=== PATIENT | female | born 1950 | race Caucasian/White ===

== ENCOUNTER 2019-02-26 18:28 | Emergency (ER) | payer MEDICARE, OTHER, SELFPAY ==
[2019-02-26 18:30] VITALS: BP 166/68; PULSE 75; RESP 18; TEMP 36.4; O2SAT 100; BMI 30.4
[2019-02-26 18:35] VITALS: BP 156/66; PULSE 74; RESP 18; O2SAT 99
--- NOTE | 2019-02-26 18:48 | RAD_ITS ---
STUDY: X-RAY - PELVIS AND RIGHT HIP REASON FOR EXAM: Female, 68 years old. Trauma, pain TECHNIQUE: 3 views of the pelvis and hip. COMPARISON: None. FINDINGS: There is a comminuted fracture of the right hip involving the intertrochanteric region and femoral neck with coxa vera deformity.. There is mild superior lateral subluxation of the femoral head. There is soft tissue hematoma. There is generalized osteopenia. RAD/HIP, UNI W/ Pelvis 2-3 Views IMPRESSION: comminuted fracture of the right hip involving the intertrochanteric region and femoral neck with coxa vera deformity.. There is mild superior lateral subluxation of the femoral head. There is soft tissue hematoma. There is generalized osteopenia. Electronically Signed: Patrick Alvarez, at 20:06 EDT Tel , Service support ,
--- NOTE | 2019-02-26 19:00 | RAD_ITS ---
STUDY: X-RAY - RIGHT ANKLE REASON FOR EXAM: Female, 68 years old. Pain TECHNIQUE: 3 view(s) of the ankle. COMPARISON: None. FINDINGS: There is 2 mm bony density adjacent to the base of the fifth metatarsal. There is calcaneal spur. There is plantar soft tissue ossification.. There is soft tissue edema. Exam is limited due to overlying bandages. RAD/Ankle min 3 Views IMPRESSION: Calcaneal spur, plantar soft tissue ossifications which can be associated with plantar fasciitis 2 mm bony density adjacent to the base of fifth metatarsal suspicious for small avulsion fracture of unknown age Electronically Signed: Patrick Alvarez, at 21:37 EDT Tel , Service support ,
--- NOTE | 2019-02-26 19:36 | CT_ITS ---
STUDY: CT BRAIN WITHOUT CONTRAST REASON FOR EXAM: Female, 68 years old. Vertigo RADIATION DOSAGE (If Supplied By Facility): CTDIvol = ( 44.99 ) mGy, DLP = ( 796.11 ) mGycm TECHNIQUE: Transaxial CT imaging of the brain was performed without administration of intravenous contrast material. Individualized dose optimization techniques were used for this CT. COMPARISON: No relevant priors. FINDINGS: Normal soft tissue structures. Normal calvarium. There are central and cortical involutional changes. There are periventricular hypodensities. There is a 2 cm hypodensity left frontoparietal lobe white matter.. Normal basal ganglia and thalami. Normal brainstem. Normal cerebellum. There is no intracranial hemorrhage. There are no findings of an acute ischemic infarction. Normal visualized paranasal sinuses. 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 CT/Brain/Head without Contrast IMPRESSION: Central and cortical involutional changes Extensive deep white matter ischemic changes most significant within the left frontal parietal lobe. These Most likely are old however acute infarct cannot be excluded. 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 Electronically Signed: Patrick Alvarez, at 20:42 EDT Tel , Service support ,
--- NOTE | 2019-02-26 19:36 | EKG12_ITS ---
Test Reason : FALL Blood Pressure : / mmHG Vent. Rate : 080 BPM Atrial Rate : 080 BPM P-R Int : 138 ms QRS Dur : 094 ms QT Int : 386 ms P-R-T Axes : 041 072 139 degrees QTc Int : 445 ms Normal sinus rhythm ST & T wave abnormality, consider lateral ischemia Abnormal ECG Confirmed by MATTHEW SMALL, JAELYN ([id number]), editorial assistant ADELE BRO ([id number] on 02/28/2019 4:00:50 PM Referred By: VAISHALI Confirmed By:JAELYN CASTRO MD
--- NOTE | 2019-02-26 19:37 | CT_ITS ---
STUDY: CT CERVICAL SPINE WITHOUT CONTRAST REASON FOR EXAM: Female, 68 years old. Vertigo, trauma, neck pain RADIATION DOSAGE (If Supplied By Facility): CTDIvol = ( 18.05 ) mGy, DLP = ( 375.79 ) mGycm TECHNIQUE: High resolution transaxial imaging was performed without contrast material. Sagittal and coronal images were reconstructed. Individualized dose optimization techniques were used for this CT. COMPARISON: None FINDINGS: Normal craniovertebral junction. 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 Normal odontoid process. Normal cervical lordosis. Normal vertebral bodies and posterior osseous elements. C2-3: Normal endplates. Normal disc height and morphology. Normal central canal and intervertebral neuroforamina. C3-4: Normal endplates. Normal disc height and morphology. Normal central canal and intervertebral neuroforamina. C4-5: There is mild posterior disc osteophyte complex. There is Mild central canal stenosis. There is no foraminal stenosis. There are moderate facet degenerative changes C5-6: There is mild posterior disc osteophyte complex and mild central canal stenosis. There are Moderate facet degenerative changes and facet hypertrophy. There is no foraminal stenosis C6-7: There is disc space narrowing with large right paracentral disc osteophyte complex without cord compression. There is moderate central canal stenosis. There is significant uncinate hypertrophy with mild facet degenerative changes. There is mild bilateral foraminal stenosis C7-T1: There is mild posterior disc osteophyte complex. There is no central canal or foraminal stenosis there is mild facet spondylosis Normal visualized soft tissue structures. 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
--- NOTE | 2019-02-26 19:41 | RAD_ITS ---
STUDY: X-RAY CHEST REASON FOR EXAM: Female, 68 years old. Pre-op, cardiac surgery TECHNIQUE: Portable chest COMPARISON: None. FINDINGS: The lungs are clear and expanded. There is no demonstrated pleural abnormality. There is cardiomegaly. There are sternal wires. There are coronary stents. Normal mediastinum and russel. Normal visualized pulmonary arteries. Normal visualized aortic arch and descending thoracic aorta. Normal visualized thoracic spine. Normal visualized ribs, clavicles, and shoulders. There is no demonstrated abnormality of the visualized soft tissue structures of the upper abdomen. RAD/Chest 1 View (Portable) IMPRESSION: Cardiomegaly Sternal wires and coronary stents Electronically Signed: Patrick Alvarez, at 20:35 EDT Tel , Service support ,
[2019-02-26] MEDS: 0.9% Normal Saline 1,000 ML 150 ML IV (19:43)
--- NOTE | 2019-02-26 19:43 | ED.VISSUMM ---
- ER Visit Summary Date of Service: 02/26/19 Chief Complaint: Fall History of Present Illness: The patient is a 68 F fall at 5:30 PM today. Walking to the kitchen when she became lightheaded falling down. No syncopal episodes. No chest pains or shortness of breath. States that the side of her head. Complains of right elbow and right hip right ankle pain. Brought in by EMS with splint to right ankle. Patient history of coronary disease followed by [facility] bulb assembler. States had 6 stents and bypass procedure in the past. No history of fractures. She is on aspirin and Brilinta. No headache or neck pain. Daughter reports chronic diarrhea. She was on potassium in the past. Physical Examination: General: Alert and oriented ?3, no acute distress HEENT: Normocephalic, small abrasion right lateral brow with no active bleeding. Moist mucosa membranes Neck: supple, nontender. Cardiovascular: Regular rate and rhythm, no murmurs Respiratory: Normal breath sounds, symmetric, no distress Abdomen: Soft, nontender, nondistended Extremities: Right lower extremity: Tender palpation greater trochanteric with positive logroll. No knee tenderness. Splint was removed, there is no bony tenderness of the ankle. Skin is intact. Neurovascular intact distally. Neuro: no focal neurological deficits. Test Results: CT head and neck: No acute process. Chest x-ray negative. Right ankle x-ray negative. Right hip x-ray intertrochanteric fracture displaced. Right elbow x-ray: Medial epicondyle fracture. Humeral 10.6. BUN 116, creatinine 3.66. Emergency Department Course and Treatment: Nursing protocol initiated x-rays ankle and hip. Noted displaced intertrochanteric fracture. Evaluated patient she declined any pain medicines initially. Labs were drawn. With other injuries additional image studies obtained CT head neck was negative. Chest x-ray for preop negative. EKG for preop notes T wave inversions V4 to V6 with no old for comparison. She has no chest pains. Right elbow x-ray with a medial epicondyle fracture. She later accepted fentanyl for pain. Fluids were started. Herrera catheter. I spoke with on-call orthopedist Dr. Selby, discussed patient's presentation findings and history, high risk, states recommend discussing the patient with her bulb assembler at [facility] with 24-hour care there she may want to go there. In addition patient has BUN 116, creatinine 3.66, she does not know her baseline however she states she sees automation test engineer at [facility]. With a BUN elevated likely potentially cause her near syncopal episode. She is alert and oriented x3. Discussed with patient and daughter who agrees. Spoke with [facility] transfer, ED physician Dr. Jose Dent accepts the transfer. Treatment Plan: [] Disposition: Transfer Impression: 1. Right displaced intratrochanteric fracture 2. Right medial epicondyle fracture 3. Near syncope 4. Chronic kidney disease 5. Closed head injury This note was generated with Soma dictation software. It may contain incorrect words, spelling, and punctuation that were not noted in review of the chart prior to signing ED Disposition - Plan for ED Patient: Disposition: [facility] Diagnosis: Closed right hip fracture, Elbow fracture, right, Chronic kidney disease, Closed head injury, Near syncope Referrals: Patrick Ocampo MD [Primary Care Provider] -
--- NOTE | 2019-02-26 19:46 | ED.DCSUM_ITS ---
- ER Visit Summary Date of Service: 02/26/19 Chief Complaint: Fall History of Present Illness: The patient is a 68 F fall at 5:30 PM today. Walking to the kitchen when she became lightheaded falling down. No syncopal episodes. No chest pains or shortness of breath. States that the side of her head. Complains of right elbow and right hip right ankle pain. Brought in by EMS with splint to right ankle. 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 States had 6 stents and bypass procedure in the past. No history of fractures. She is on aspirin and Brilinta. No headache or neck pain. Daughter reports chronic diarrhea. She was on potassium in the past. Physical Examination: General: Alert and oriented ?3, no acute distress HEENT: Normocephalic, small abrasion right lateral brow with no active bleeding. Moist mucosa membranes Neck: supple, nontender. Cardiovascular: Regular rate and rhythm, no murmurs Respiratory: Normal breath sounds, symmetric, no distress Abdomen: Soft, nontender, nondistended Extremities: Right lower extremity: Tender palpation greater trochanteric with positive logroll. No knee tenderness. Splint was removed, there is no bony tenderness of the ankle. Skin is intact. Neurovascular intact distally. Neuro: no focal neurological deficits. Test Results: CT head and neck: No acute process. Chest x-ray negative. Right ankle x-ray negative. Right hip x-ray intertrochanteric fracture displaced. Right elbow x-ray: Medial epicondyle fracture. Humeral 10.6. BUN 116, creatinine 3.66. Emergency Department Course and Treatment: Nursing protocol initiated x-rays ankle and hip. Noted displaced intertrochanteric fracture. Evaluated patient she declined any pain medicines initially. Labs were drawn. With other injuries additional image studies obtained CT head neck was negative. Chest x- ray for preop negative. EKG for preop notes T wave inversions V4 to V6 with no old for comparison. She has no chest pains. Right elbow x-ray with a medial epicondyle fracture. She later accepted fentanyl for pain. Fluids were started. Herrera catheter. I spoke with on-call orthopedist Dr. Selby, discussed patient's presentation findings and history, high risk, states recommend discussing the patient with her house supervisor at [facility] with 24-hour care there she may want to go there. In addition patient has BUN 116, creatinine 3.66, she does not know her baseline however she states she sees physicist acoustics at [facility]. With a BUN elevated likely potentially cause her near syncopal episode. She is alert and oriented x3. Discussed with patient and daughter who agrees. Spoke with [facility] transfer, ED physician Dr. Jose Dent accepts the transfer. Treatment Plan: [] Disposition: Transfer Impression: 1. Right displaced intratrochanteric fracture 2. Right medial epicondyle fracture 3. Near syncope 4. Chronic kidney disease 5. Closed head injury This note was generated with Nulogy dictation software. It may contain incorrect words, spelling, and punctuation that were not noted in review of the chart prior to signing ED Disposition - Plan for ED Patient: Disposition: [facility] Diagnosis: Closed right hip fracture, Elbow fracture, right, Chronic kidney disease, Closed head injury, Near syncope Referrals: Patrick Ocampo MD [Primary Care Provider] -
[2019-02-26 19:49] LABS: Absolute Lymphocyte Count 2.79 X10^3/ul (0.83-4.51); Absolute Neutrophil Count 7.7 X10^3/uL (2.0-7.7); Basophil# 0.02 X10^3/uL; Basophil% 0.2 % (0-1); Eosinophil# 0.65 X10^3/uL; Eosinophils% 5.4 % (0-5); Hematocrit 31.9 % (37-47); Hemoglobin 10.6 g/dl (12.0-15.0); Lymphocyte # 2.79 X10^3/ul (4.0); Lymphocyte % 23.1 % (19-41); Mean Corp Hgb Conc 33.2 g/gl (32-36); Mean Corpuscular Hgb 28.6 pg (27.0-32.0); Mean Corpuscular Volume 86.2 fL (81-99); Mean Platelet Vol. 9.8 fl (6.2-12.0); Monocyte% 7.4 % (0-10); Neutrophil % 63.6 % (47-70); Platelet Count 296 K/mm3 (150-450); RBC Distribution Width CV 16.7 % (11.6-14.6); RBC Distribution Width SD 52.7 fl (35.1-43.9); White Blood Count 12.1 K/mm3 (4.4-11.0)
--- NOTE | 2019-02-26 19:50 | RAD_ITS ---
STUDY: X-RAY - RIGHT ELBOW REASON FOR EXAM: Female, 68 years old. Fall, laceration TECHNIQUE: 4 view(s) of the elbow. COMPARISON: None. FINDINGS: There is generalized osteopenia. There is soft tissue edema. There is small bony densities adjacent to the medial epicondyle.. RAD/Elbow min 3 Views IMPRESSION: Generalized osteopenia Soft tissue edema Small bony densities adjacent to the medial epicondyle suspicious for small avulsion fractures and osteophytes. Electronically Signed: Patrick Alvarez, at 20:33 EDT Tel , Service support ,
[2019-02-26 19:51] LABS: POSITIVE COUNT NO; POSITIVE DIFFERENTIAL NO; POSITIVE MORPHOLOGY NO
[2019-02-26 19:53] LABS: Partial Thromboplast Time 31.5 Seconds (24.1-36.2); Prothrombin Time (Protime)PT. 13.4 SECONDS (11.7-14.9)
[2019-02-26 20:01] LABS: Anion Gap 13 (5-15); BUN 116 mg/dL (7-18); BUN/Creat Ratio 31.7 RATIO (10-20); Calcium,Total 8.7 mg/dL (8.5-10.1); Chloride 106 mmol/L (98-107); Creatinine, Serum 3.66 mg/dL (0.55-1.02); EST Glomerular Filtration Rate 13 mL/min (>60); Est Glom Filt Rate - Afr Amer 16 mL/min (>60); Estimated Creatinine Clearance 12.87 ml/min; Glucose 153 mg/dL (74-106); Potassium 5.1 mmol/L (3.5-5.1); Sodium Level 135 mmol/L (136-145)
--- NOTE | 2019-02-26 20:02 | ED.RN ---
DR TOM NOTIFIED OF BUN RESULTS
[2019-02-26 21:09] VITALS: BP 151/81; PULSE 84; RESP 24; O2SAT 100
[2019-02-26] MEDS: fentaNYL 100 MCG/2 ML Ampul 25 MCG IV (21:10)
[2019-02-26 21:47] VITALS: BP 147/71; PULSE 84; O2SAT 99
== END 2019-02-26 22:07 | disposition short-term general hospital (02) ==
PROVIDERS: Emergency Provider Emergency Medicine; Family Provider Family Medicine; PCP Family Medicine
DX: S72.141A Displaced intertrochanteric fracture of right femur, initial encounter for closed fracture (principal); S42.441A Displaced fracture (avulsion) of medial epicondyle of right humerus, initial encounter for closed fracture; S00.211A Abrasion of right eyelid and periocular area, initial encounter; S09.90XA Unspecified injury of head, initial encounter; W18.30XA Fall on same level, unspecified, initial encounter; Y93.01 Activity, walking, marching and hiking; Y92.000 Kitchen of unspecified non-institutional (private) residence as the place of occurrence of the external cause; Y99.9 Unspecified external cause status; R55 Syncope and collapse; E11.22 Type 2 diabetes mellitus with diabetic chronic kidney disease; N18.6 End stage renal disease; K52.9 Noninfective gastroenteritis and colitis, unspecified; I25.10 Atherosclerotic heart disease of native coronary artery without angina pectoris; Z79.02 Long term (current) use of antithrombotics/antiplatelets; Z79.82 Long term (current) use of aspirin; Z79.4 Long term (current) use of insulin; Z79.899 Other long term (current) drug therapy; Z86.73 Personal history of transient ischemic attack (TIA), and cerebral infarction without residual deficits; Z95.5 Presence of coronary angioplasty implant and graft; Z95.1 Presence of aortocoronary bypass graft
CPT/HCPCS: 51702; 70450; 71045; 72125; 73080; 73502; 73610; 80048; 85025; 85610; 85730; 93005; 96361; 96374; 99285; J7030; A4216

== ENCOUNTER 2019-04-27 14:28 | Emergency (ER) | payer MEDICARE, OTHER, SELFPAY ==
[2019-04-27 14:29] VITALS: BP 150/65; PULSE 95; RESP 17; TEMP 36.6; O2SAT 98; BMI 30.6
--- NOTE | 2019-04-27 15:06 | RAD_ITS ---
STUDY: X-RAY - RIGHT ELBOW REASON FOR EXAM: Female, 69 years old. Fall today TECHNIQUE: 3 view(s) of the elbow. COMPARISON: 02/26/2019 FINDINGS: Stable osseous density along the inner epicondyle. This could be related to remote avulsion injury or calcific tendinitis of the common flexor tendon. No acute fractures are seen. Joint spaces are intact. RAD/Elbow min 3 Views IMPRESSION: No acute osseous injury is evident. Electronically Signed: Devin Adkins MD at 17:00 EDT Tel , Service support ,
--- NOTE | 2019-04-27 15:06 | RAD_ITS ---
STUDY: X-RAY - PELVIS AND RIGHT HIP REASON FOR EXAM: Female, 69 years old. Fall today TECHNIQUE: 2 views of the pelvis and hip. COMPARISON: 02/26/2019 FINDINGS: Acute fractures of the right superior and inferior pubic rami are noted. Interval surgical fusion of a previously described right intertrochanteric femur fracture. Scattered surgical clips. Degenerative hip joint changes bilaterally. RAD/HIP, UNI W/ Pelvis 2-3 Views IMPRESSION: Acute fractures of the right superior and inferior pubic rami are noted. Electronically Signed: Devin Adkins MD at 16:53 EDT Tel , Service support ,
--- NOTE | 2019-04-27 15:06 | CT_ITS ---
STUDY: CT BRAIN WITHOUT CONTRAST REASON FOR EXAM: Female, 69 years old. History of fall. Right preorbital hematoma. RADIATION DOSAGE (If Supplied By Facility): CTDIvol = ( 60.81 ) mGy, DLP = ( 998.67 ) mGycm TECHNIQUE: Transaxial CT imaging of the brain was performed without administration of intravenous contrast material. Individualized dose optimization techniques were used for this CT. COMPARISON: Comparison is made with prior study dated February 26, 2019. FINDINGS: Large right preorbital soft tissue hematoma. Normal calvarium. There is mild cerebral atrophy with widening of the extra-axial spaces and ventricular dilatation. There are areas of decreased attenuation within the white matter tracts of the supratentorial brain, consistent with microvascular disease changes. Stable focal area of decreased attenuation in the left frontoparietal lobe white matter suggestive of old ischemic change. Normal basal ganglia and thalami. Normal brainstem. Normal cerebellum. There is no intracranial hemorrhage. There are no findings of an acute ischemic infarction. Atherosclerotic calcification of the cavernous portions of the internal carotid arteries bilaterally. Normal visualized paranasal sinuses. CT/Brain/Head without Contrast IMPRESSION: Chronic involutional changes of the brain. Right preorbital soft tissue hematoma. Electronically Signed: Joo Lopez, at 15:49 EDT , Service support ,
--- NOTE | 2019-04-27 15:06 | CT_ITS ---
STUDY: CT CERVICAL SPINE WITHOUT CONTRAST REASON FOR EXAM: Female, 69 years old. History of fall. RADIATION DOSAGE (If Supplied By Facility): CTDIvol = ( 30.80 ) mGy, DLP = ( 684.97 ) mGycm TECHNIQUE: High resolution transaxial imaging was performed without contrast material. Sagittal and coronal images were reconstructed. Individualized dose optimization techniques were used for this CT. COMPARISON: Comparison is made with prior examination dated February 26, 2019. FINDINGS: Normal craniovertebral junction. There are degenerative changes of the anterior atlantoaxial articulation. Normal odontoid process. Normal cervical lordosis. Normal vertebral bodies and posterior osseous elements. C2-3: Normal endplates. Normal disc height and morphology. Normal central canal and intervertebral neuroforamina. C3-4: Normal endplates. Normal disc height and morphology. Normal central canal and intervertebral neuroforamina. C4-5: Mild degree of disc space narrowing. Minimal central canal stenosis. Facet joint osteoarthritis. C5-6: Moderate degree of disc space narrowing. Spondylosis. Facet joint osteoarthritis. Mild to moderate degree of central spinal stenosis. C6-7: Marked degree of disc space narrowing with subchondral sclerosis and disc degeneration. Spondylosis. Moderate degree of central canal stenosis. Uncovertebral arthrosis. Mild bilateral neural foraminal stenosis. Normal visualized soft tissue structures. CT/Spine Cervical without Contras IMPRESSION: Multilevel degenerative changes, as described above. Electronically Signed: Joo Lopez, at 15:52 EDT , Service support ,
--- NOTE | 2019-04-27 15:06 | CT_ITS ---
STUDY: CT FACIAL BONES WITHOUT CONTRAST REASON FOR EXAM: Female, 69 years old. Hematoma overlying the right orbit following a fall. RADIATION DOSAGE (If Supplied By Facility): CTDIvol = ( 33.45 ) mGy, DLP = ( 582.34 ) mGycm TECHNIQUE: The patient was scanned in a multi detector CT scanner. Sagittal and coronal images were reconstructed. Individualized dose optimization techniques were used for this CT. COMPARISON: None. FINDINGS: Large soft tissue hematoma overlying the right periorbital region. Normal orbital thompson and orbital contents. Normal nasal bones and anterior nasal spine. Normal facial bones. There is no demonstrated fracture. Normal visualized paranasal sinuses. CT/Sinus/Facial Bone IMPRESSION: Large right preorbital hematoma. Electronically Signed: Joo Lopez, at 15:48 EDT , Service support ,
--- NOTE | 2019-04-27 15:13 | ED.VISSUMM ---
- ER Visit Summary Date of Service: 04/27/19 Chief Complaint: Fall History of Present Illness: The patient is a 69 F presenting after fall. Patient states she was in a hurry and turned quickly and fell onto her right side. She hit her head. She denies loss of consciousness. She is on Brilinta. She hit her right hip. She has complains of mild pain in her right hip. She has a skin tear to her right elbow. She has been able to ambulate since the fall. Unknown last tetanus immunization. No other complaints. Physical Examination: Vitals are stable. Patient is afebrile. Alert no acute distress. HEENT exam right periorbital ecchymosis and swelling, PERRL, EOMI Neck is nontender Lungs are clear and equal bilaterally. Heart is regular rate and rhythm. Abdomen is soft nontender nondistended. Extremities right lateral hip tenderness with ecchymosis. Active full range of motion. Skin tear right forearm with no bony tenderness. Skin is warm and dry. No focal neurologic deficit. Remainder of exam is unremarkable. Emergency Department Course and Treatment: Patient was given Adacel IM. CT head shows chronic involutional changes of the brain. Right preorbital soft tissue hematoma. CT cervical spine shows degenerative changes. CT facial bones shows large right preorbital hematoma. Right elbow x-ray shows no fracture. Wound was cleaned and dressed. Right hip x-ray shows acute fractures of the right superior and inferior pubic rami are noted. Patient is able to ambulate in the ED. She is comfortable with discharge home. She will follow-up with Dr. Soler. Advised return to ED for worsening complaints. Disposition: Discharge home Impression: Status post mechanical fall, facial contusion, right superior and inferior pubic rami fracture This note was generated with Amiare dictation software. It may contain incorrect words, spelling, and punctuation that were not noted in review of the chart prior to signing ED Disposition - Plan for ED Patient: Instructions: ED Mechanical Fall, ED Fx Pelvis Referrals: Irvin Soler DO [STAFF PHYSICIAN] - Patrick Ocampo MD [Primary Care Provider] -
[2019-04-27] MEDS: Diphth,Pertuss(Acell),Tet Vac 0.5 ML Vial IM (16:09)
[2019-04-27 16:29] VITALS: BP 145/66; PULSE 90; RESP 15; O2SAT 95
[2019-04-27 18:00] VITALS: BP 151/78; PULSE 89; RESP 19; O2SAT 96
--- NOTE | 2019-04-27 18:04 | ED.DEP ---
ED Disposition - Plan for ED Patient: Instructions: ED Mechanical Fall, ED Fx Pelvis Referrals: Patrick Ocampo MD [Primary Care Provider] - Irvin Soler DO [STAFF PHYSICIAN] -
[2019-04-27 18:26] VITALS: BP 151/78; PULSE 89; RESP 19; O2SAT 96
== END 2019-04-27 18:27 | disposition home or self-care (01) ==
LOC: ED 15:06
PROVIDERS: Emergency Provider Emergency Medicine; Family Provider Family Medicine; PCP Family Medicine
DX: S32.591A Other specified fracture of right pubis, initial encounter for closed fracture (principal); S00.83XA Contusion of other part of head, initial encounter; S00.11XA Contusion of right eyelid and periocular area, initial encounter; S51.011A Laceration without foreign body of right elbow, initial encounter; S51.811A Laceration without foreign body of right forearm, initial encounter; W19.XXXA Unspecified fall, initial encounter; Y93.9 Activity, unspecified; Y92.9 Unspecified place or not applicable; Y99.9 Unspecified external cause status; I25.10 Atherosclerotic heart disease of native coronary artery without angina pectoris; E11.9 Type 2 diabetes mellitus without complications; I10 Essential (primary) hypertension; F32.9 Major depressive disorder, single episode, unspecified; Z79.02 Long term (current) use of antithrombotics/antiplatelets; Z79.82 Long term (current) use of aspirin; Z79.4 Long term (current) use of insulin; Z79.899 Other long term (current) drug therapy
CPT/HCPCS: 70450; 70486; 72125; 73080; 73502; 90715; 99284

== ENCOUNTER 2019-05-31 09:38 | Outpatient (RCR) | payer MEDICARE, OTHER, SELFPAY ==
[2019-05-31 10:05] VITALS: BP 116/69; PULSE 84; RESP 18; TEMP 34.8; BMI 29.2
--- NOTE | 2019-05-31 16:50 | PCM.WC.HP ---
(1) Decubitus ulcer of right buttock, stage 2 Status: Acute Current Visit: Yes Code(s): L89.312 - Pressure ulcer of right buttock, stage 2 History of Present Illness Date of Service: 05/31/19 Chief Complaint: Nonhealing right buttock ulcer History of Wound: Ms. Goodman is a 69-year-old who presented to the wound center due to nonhealing left buttock ulcer. Said to have been ongoing for months. Has had a series of events since November with an initial stroke, femur fracture and pelvic pain and this had left her confined to a sitting/laying position with subsequent ulceration of the right buttock. She has managed this at home and has applied barrier cream/dressing to this. She was however concerned with the delayed healing for which she presented here. Feels well otherwise. Denies chills, fever, nausea or change in her bowel habit. Past Medical History Past Medical History: Chronic Problems Decubitus ulcer of left buttock, stage 2 (Chronic) Allergies/Adverse Reactions: Allergies morphine Adverse Reaction (Unknown, Verified 05/31/19 10:04) Unknown Sulfa (Sulfonamide Antibiotics) Adverse Reaction (Unknown, Verified 05/31/19 10:04) Unknown Home Medications: Ambulatory Orders Medication Instructions Recorded Allopurinol 100 mg PO DAILY 02/26/19 Aspirin [Aspirin, Baby] 81 mg PO DAILY@0800 02/26/19 Carvedilol 1 tab PO BID 02/26/19 Ezetimibe 10 mg PO DAILY 02/26/19 Famotidine 20 mg PO DAILY 02/26/19 Furosemide [Lasix] 10 mg PO DAILY 02/26/19 Insulin Glargine,Hum.rec.anlog 15 unit SC QHS 02/26/19 [Lantus] Insulin Lispro [Humalog] 10 unit SC DAILY 02/26/19 Meclizine HCl 25 mg PO BID PRN 02/26/19 Atorvastatin Calcium [Lipitor] 10 mg PO DAILY 04/27/19 Citalopram [Celexa] 10 mg PO DAILY 04/27/19 Insulin Glargine,Hum.rec.anlog See Protocol SQ DAILY 04/27/19 [Basaglar Kwikpen U-100] Nitroglycerin 0.4 mg SL PRN PRN 04/27/19 Ticagrelor [Brilinta] 04/27/19 Ticagrelor [Brilinta] 90 mg PO DAILY 04/27/19 Smoking Status: Never smoker Review of Systems Constitutional: Denies: Anorexia, Chills Eyes: Denies: Pain, Redness HEENT: Denies: Difficulty Hearing, Difficulty Swallowing Cardiovascular: Denies: Chest Pain, Chest Pressure Respiratory: Denies: Cough, Hemoptysis Skin: Denies: Jaundice - Physical Exam Vital Signs Temp Pulse Resp BP 94.7 F L 84 18 116/69 05/31/19 10:05 05/31/19 10:05 05/31/19 10:05 05/31/19 10:05 General: Alert, Oriented x3, Cooperative, No apparent distress HEENT: Atraumatic, Normocephalic Oral: Moist Mucosa Neck: Supple Lungs: Normal air movement Cardiovascular: Regular rate, Regular Rhythm, Normal S1, Normal S2 Abdomen: Soft, Non Tender Skin: Ulcer/ Wound Wound Measurements and Assessment WC - Nurse 1 - General Ulcer Measurement Start: 05/31/19 10:00 Freq: Status: Active Protocol: Activity Type Activity Date Activity User E-Sign Co-Sign Detail Recorded Client Recorded Date Recorded By Document 05/31/19 10:05 DV [id number] 05/31/19 10:29 DV 05/31/19 10:05 Wound Center Nurse 1 [Ulcer Assessment] #1 Right Buttock -Combined with other wound No -Current Size (cm) - Length 0.1 -Current Size (cm) - Width 0.1 -Current Size (cm) - Depth 0.1 -Total Square Cm 0.01 -Date of Last Picture (Recall this 05/31/19 field) -Photo Taken Yes -Epithelialization None Present -Tunneling No -Undermining/Tunneling No -Circular Undermining No -Classification - Thickness Full Thickness without Exposed Support Structure -Exudate Amt Medium -Exudate Type Serosanguineous -Wound Margin Indistinct, Non -Visible -Granulation Amt None Present (0 %) -Granulation Quality N/A -Slough/Fibrin Yes -Necrosis Amt Small (1-33%) -Necrotic Tissue Type Adherent Slough -Structure Exposed N/A -Texture (Amy-wound Skin Appearance) Assessed,Rash -Moisture (Amy-wound Skin Appearance Assessed,Dry/ ) Scaly -Color (Amy-wound Skin Appearance) Assessed, Erythema -Temperature (Amy-wound Skin No Abnormality Appearance) (Pt Warm) -Tenderness on Palpation (Amy-wound No Skin Appearance) -Ulcer Cleansing Rinsed/ Irrigated with Saline -Foul Odor after Cleansing No -Anesthetic Used 5% Lidocaine Gel WC - Nurse 2 - General Ulcer CM Notes Start: 05/31/19 10:00 Freq: Status: Active Protocol: Activity Type Activity Date Activity User E-Sign Co-Sign Detail Recorded Client Recorded Date Recorded By Document 05/31/19 10:53 MW [id number] 05/31/19 10:56 MW 05/31/19 10:53 Wound Center Nurse 2 [Procedure/Treatment] -Time 10:54 -Correct Patient Yes -Correct Side, Site, Position Yes -Correct Procedure Yes -Procedure Performed Yes -Clinical Debridement Subcutaneous, Selective -Post Debridement Size (cm) - Length 0.1 -Post Debridement Size (cm) - Width 0.1 -Post Debridement Size (cm) - Depth 0.1 -Total Square Cm 0.01 -Wound/Ulcer Outcome Not Healed -Ulcer Cleansing Rinsed/ Irrigated with Saline -Foul Odor after Cleansing No -Bioengineered Tissue No -Bleeding Controlled with Pressure -Offloading No -Treatment Response Procedure Tolerated Well [See Physician Procedure note for Specifics] Pain Scale: 0-10 Numeric [Pain] -Is Patient Pain Free? Yes Musculoskeletal: No Muscle Wasting Neurological: Cranial nerves II-XII grossly intact Psych/Mental Status: Normal Affect Debridement Note Post-Debridement Measurements/Treatment MAYANK - Nurse 2 - General Ulcer CM Notes Start: 05/31/19 10:00 Freq: Status: Active Protocol: Activity Type Activity Date Activity User E-Sign Co-Sign Detail Recorded Client Recorded Date Recorded By Document 05/31/19 10:53 MW [id number] 05/31/19 10:56 MW 05/31/19 10:53 Wound Center Nurse 2 #1 Right Buttock -Time 10:54 -Correct Patient Yes -Correct Side, Site, Position Yes -Correct Procedure Yes -Procedure Performed Yes -Clinical Debridement Subcutaneous, Selective -Post Debridement Size (cm) - Length 0.1 -Post Debridement Size (cm) - Width 0.1 -Post Debridement Size (cm) - Depth 0.1 -Total Square Cm 0.01 -Wound/Ulcer Outcome Not Healed -Ulcer Cleansing Rinsed/ Irrigated with Saline -Foul Odor after Cleansing No -Bioengineered Tissue No -Bleeding Controlled with Pressure -Offloading No -Treatment Response Procedure Tolerated Well Pain Scale: 0-10 Numeric Is Patient Pain Free? Yes Wound debrided: Right buttock Wound Grade/Stage: Stage 2 Type of Debridement: Selective debridement Anesthesia Used: 4% Lidocaine Solution Depth: Down to and including healthy tissue, in the subcutaneous layer Percentage of wound debrided: 100 Instrument Used: 3mm curette Tissue Removed: Devitalized tissue Severity: Limited To Skin Breakdown Amount of bleeding with debridement: Mild Bleeding Controlled with: Pressure Patient tolerated procedure well Assessment/Plan Active Problems Decubitus ulcer of left buttock, stage 2 (Chronic) Decubitus ulcer of right buttock, stage 2 (Acute) Assessment: Nonhealing decubitus ulcer of the right buttock. Plan: She appears to have done really well on her own because she apparently has only minimal area left. Debridement done as documented above, procedure was well-tolerated. Continue barrier dressing/syncope scream. OptiForm over area. Continue offloading and increased protein intake. Follow-up in a week. All questions were answered and she was advised to call with any further questions or concerns. This note was generated with [employer] software. It may contain incorrect words, spelling, and punctuation that were not noted in checking the note before signing.
== END 2019-06-14 23:59 ==
LOC: WC 09:38
PROVIDERS: Family Provider Family Medicine; PCP Family Medicine; Visit Provider Internal Medicine
DX: L89.312 Pressure ulcer of right buttock, stage 2 (principal); Z86.73 Personal history of transient ischemic attack (TIA), and cerebral infarction without residual deficits; L89.322 Pressure ulcer of left buttock, stage 2
CPT/HCPCS: 11042; 99213; G0463

== ENCOUNTER 2019-06-11 00:07 | Emergency (ER) | payer MEDICARE, OTHER, SELFPAY ==
[2019-06-11 00:08] VITALS: BP 143/82; PULSE 77; RESP 15; TEMP 37; O2SAT 97; BMI 30.4
--- NOTE | 2019-06-11 00:25 | ED.DCSUM_ITS ---
History of Present Illness Chief Complaint: Cellulitis Informant: Patient Onset: Weeks - 1 Narrative: Here with her daughters for concerns of cellulitis. Patient reports increased leg swelling bilaterally over the past week. She is on Lasix 10 mg daily for peripheral edema. States slightly more than normal. This evening daughter noted there was redness to the left left leg which currently resolved. Patient denies fever. Denies injuries to the foot or legs. History of chronic kidney disease with unclear baseline or staging. No orthopnea or PND. No chest pains or shortness of breath. Prior similar symptoms: Yes Past Medical History - Allergies and Home Meds Allergies/Adverse Reactions: Allergies morphine Adverse Reaction (Unknown, Verified 06/11/19 00:12) Unknown Sulfa (Sulfonamide Antibiotics) Adverse Reaction (Unknown, Verified 06/11/19 00:12) Unknown Primary Care Physician: Patrick Ocampo MD [Primary Care Provider] - Smoking Status: Never smoker Review of Systems All systems negative except as indicated General: Denies: Chills, Fever, Sweats Eyes: Denies: Visual changes - bilaterally, Diplopia ENT: Denies: Rhinorrhea, Sore throat Cardiovascular: Denies: Chest pain, Palpitations Respiratory: Denies: Dyspnea, Cough, Dyspnea on exertion Gastrointestinal: Denies: Abdominal pain, Nausea, Vomiting, Diarrhea, Melena, Hematochezia Genitourinary: Denies: Dysuria, Hematuria, Frequency Musculoskeletal: Reports: Swelling. Denies: Back pain, Extremity Pain Skin: Denies: Rash, Wounds Neurological: Denies: Headache, Weakness, Numbness Physical Exam Vital Signs/Narrative: Vital Signs Temp Pulse Resp BP Pulse Ox 06/11/19 00:08 98.6 F 77 15 143/82 H 97 Inital Vital Signs reviewed: Yes General: Well nourished, Well developed, No Acute Distress Head: Normocephalic, Atraumatic Eyes: Perrl, EOMI ENT: Moist mucous membranes, No rhinorrhea Neck: Supple, Nontender Cardiovascular: Regular rate, Regular rhythm, No murmurs Respiratory: No distress, CTA bilaterally, Chest nontender Abdomen: Soft, Nontender, Nondistended, Normal bowel sounds Back: Nontender, Normal Inspection Extremities: Nontender, - - 1-2+ lower extremity edema bilaterally. There is mild erythema dorsal foot however pulses are intact with no increasing warmth. Skin intact. No erythema of legs. No streaking. No calf pain. Skin: Normal color, No rash Neurological: Alert, Oriented x3, Cranial nerves II-XII grossly intact, Normal Strength, Normal Sensation Psychological: Normal affect, Normal Mood Diagnostic/Tx/Re-eval Abnormal Lab Results 06/11/19 00:40 Sodium 133 L Potassium 3.8 Chloride 101 Carbon Dioxide 25.0 Anion Gap 7 BUN 43 H Creatinine 2.08 H Estim Creat Clear Calc 21.42 Est GFR (MDRD) Af Amer 30 L Est GFR (MDRD) Non-Af 25 L BUN/Creatinine Ratio 20.7 H Glucose 295 H Calcium 8.5 - Medical Decision Making Patient vital signs stable, nontoxic. With transient erythema of the leg, disc ussed with patient family less likely cellulitis. She had cool skin no palpation no signs of injury. No calf pain for concerns of DVT at this time. Known peripheral edema I did check labs creatinine to 0.0. In February was 3.66. She is currently on Lasix 10 mg daily, discuss doubling her dose for the next 4 days and recheck by her PCP. They understand all questions were answered. 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 Take 2 tabs of your 10 mg Lasix starting tomorrow for 4 days, follow-up with your doctor on Wednesday for recheck.
[2019-06-11 00:59] LABS: Anion Gap 7 (5-15); BUN 43 mg/dL (7-18); BUN/Creat Ratio 20.7 RATIO (10-20); Calcium,Total 8.5 mg/dL (8.5-10.1); Chloride 101 mmol/L (98-107); Creatinine, Serum 2.08 mg/dL (0.55-1.02); EST Glomerular Filtration Rate 25 mL/min (>60); Est Glom Filt Rate - Afr Amer 30 mL/min (>60); Estimated Creatinine Clearance 21.42 ml/min; Glucose 295 mg/dL (74-106); Potassium 3.8 mmol/L (3.5-5.1); Sodium Level 133 mmol/L (136-145)
[2019-06-11 02:22] VITALS: BP 157/73; PULSE 70; RESP 15; O2SAT 100
== END 2019-06-11 02:37 | disposition home or self-care (01) ==
PROVIDERS: Emergency Provider Emergency Medicine; Family Provider Family Medicine; PCP Family Medicine
DX: R60.0 Localized edema (principal); I87.2 Venous insufficiency (chronic) (peripheral); N18.9 Chronic kidney disease, unspecified; Z79.02 Long term (current) use of antithrombotics/antiplatelets; Z79.82 Long term (current) use of aspirin; Z79.4 Long term (current) use of insulin; Z79.899 Other long term (current) drug therapy; Z88.2 Allergy status to sulfonamides
CPT/HCPCS: 80048; 99283